=== PATIENT | male | born 1970 | race Caucasian/White ===

== ENCOUNTER 2016-10-23 01:06 | Observation (INO) | payer MEDICARE, MEDICAID ==
[2016-10-23] VITALS (14 sets, daily range): BP systolic 134–177; BP diastolic 61–106; PULSE 58–87; RESP 18–22; TEMP 96.1–98.8; O2SAT 92–97
[~2016-10-23] VITALS: Ht 182.9 cm; Wt 150.0 kg
[~2016-10-23 01:06] MED LIST: BACL10TA PO; CEPH-460 PO; FURO20TA PO; HYDR-3366 PO; IPRA17I INH; OXYGENTANK NAS.CANULA; ROLLER WALKER1 MI1; [UNRECOGNIZED DRUG - OTHER]
[2016-10-23] MEDS ORDERED: NITROGLYCERIN 0.4 MG SL 25 TABS/BTL SL ONE ×2 (01:30→08:45)
[2016-10-23] MEDS ORDERED: RESP: ALBUTEROL 2.5 MG/IPRATROPIUM 0.5 MG NEB (SCH) NEB ONE (01:30)
[2016-10-23] MEDS ORDERED: ASPIRIN 325 MG TAB PO ONE (01:30)
[2016-10-23] MEDS ORDERED: SODIUM CHLORIDE 0.9% FLUSH 5 ML FLUSH IVF PRN ×2 (01:30→03:30)
--- NOTE | 2016-10-23 01:40 | RADRPT ---
EXAM DATE/TIME: 10/23/2016 01:33 [facility] COMPARISON: CHEST SINGLE AP, August 08, 2016, 9:18. INDICATIONS : Chest pains with shortness of breath and right upper chest pains. Congestion MEDICAL HISTORY : Myocardial infarction. SURGICAL HISTORY : Pacemaker. ENCOUNTER: Initial ACUITY: 2 days PAIN SCORE: 7/10 LOCATION: Right chest FINDINGS: Portable AP view of the chest demonstrates a normal-sized cardiac silhouette. No effusion, consolidat ion, or pneumothorax is visualized. The bones and soft tissues demonstrate no acute abnormality. Lung s are underinflated. Left chest wall cardiac pacing device remains present. CONCLUSION: Underinflated examination without an acute finding identified. Alan Shaver MD on October 23, 2016 at 1:38 Board Certified Radiologist. This report was verified electronically.
[2016-10-23 01:53] LABS: AUTOMATED NEUTROPHIL # 5.4 TH/MM3 (1.8-7.7); BASOPHIL % 0.5 % (0.0-2.0); EOSINOPHIL # 0.2 TH/MM3 (0-0.4); HEMATOCRIT 46.6 % (39.0-51.0); HEMO FLAGS DIFF FINAL; LYMPH % 35.1 % (9.0-44.0); LYMPHOCYTE # 3.5 TH/MM3 (1.0-4.8); MEAN CELL VOLUME 87.8 FL (80.0-100.0); MEAN CORPUSCULAR HEMOGLOBIN 29.7 PG (27.0-34.0); MEAN CORPUSCULAR HGB CONC 33.8 % (32.0-36.0); MONO % 9.4 % (0.0-8.0); PLATELET COUNT 172 TH/MM3 (150-450); RED BLOOD COUNT 5.31 MIL/MM3 (4.50-5.90); RED CELL DISTRIBUTION WIDTH 13.6 % (11.6-17.2); WHITE BLOOD COUNT 10.1 TH/MM3 (4.0-11.0)
[2016-10-23 02:09] LABS: ALT (GPT) 24 U/L (12-78); ANION GAP 8 MEQ/L (5-15); AST (GOT) 30 U/L (15-37); BICARBONATE 27.9 MEQ/L (21.0-32.0); BLOOD UREA NITROGEN 16 MG/DL (7-18); CHLORIDE 103 MEQ/L (98-107); GLOMERULAR FILTRATION RATE 51 ML/MIN (>89); POTASSIUM 3.1 MEQ/L (3.5-5.1); SODIUM (NA) 139 MEQ/L (136-145)
[2016-10-23 02:12] LABS: ALKALINE PHOSPHATASE 74 U/L (45-117); CREATINE KINASE 515 U/L (39-308); TOTAL BILIRUBIN ADULT 0.9 MG/DL (0.2-1.0)
--- NOTE | 2016-10-23 02:12 | PD ---
HPI Chief Complaint: Chest Pain Time Seen by Provider: 01:10 Travel History International Travel<30 days: No Contact w/Intl Traveler<30days: No Traveled to known affect area: No History of Present Illness HPI 46-year-old male presents with central chest pain and difficulty breathing. He states that he went to [facility] earlier today and they didn't do anything. He states he is usually on oxygen supposed to be on it for his COPD and lungs. He states he hasn't had an aspirin yet today and has no home medications to use currently. He states it was a year or 2 since he had a heart workup that he can recall. He denies other concurrent complaints. Quality is pressure. Severity is moderate. PFSH Past Medical History Anxiety: Yes Heart Rhythm Problems: Yes (pacer) Cardiac Catheterization: No Cardiovascular Problems: Yes (CHF) High Cholesterol: Yes Congestive Heart Failure: Yes COPD: Yes Diabetes: Yes Patient Takes Glucophage: No Diminished Hearing: No Respiratory: Yes (COPD) Immunizations Current: No Myocardial Infarction: Yes Sleep Apnea: Yes (BIPAP) Tetanus Vaccination: < 5 Years Past Surgical History Cardiac Surgery: Yes (ON DEMAND PACEMAKER) Coronary Artery Bypass Graft: No Pacemaker: Yes (ON DEMAND) Other Surgery: Yes (TRACH) Social History Alcohol Use: No (socially) Tobacco Use: No Substance Use: No Allergies-Medications (Allergen,Severity, Reaction): Coded Allergies: Wellbutrin (Verified Adverse Reaction, Intermediate, HOT/COLD SWEATS, NUMBNESS/TINGLING ARMS AND LEGS, 08/08/16) *MDRO Multi-Drug Resistant Organism (Unverified Adverse Reaction, Unknown , 08/08/16) MRSA (back wound) - 11/2014 Uncoded Allergies: MRI PRECAUTION PACEMAKER (Adverse Reaction, Severe, NON COMPATIBLE PACEMAKER, 08/08/16) 08/08/16 VSV Reported Meds & Prescriptions Reported Meds & Active Scripts Active Roller Walker (Misc. Devices) 1 Mis Mis 1 Ea .ROUTE NOW Oxygen tank (Oxygen) 1 Ea Tank 2 Liter JIGAR.CANULA CONTINUOUS Oxygen Concentrator Portable Gaseous 2 L/min via Nasal Cannula Continuous For 99 months Baclofen 10 Mg Tab 10 Mg PO TID [place] (Hydrocodone-Acetaminophen) 10-325 Mg Tab 1 Tab PO Q8HR PRN Keflex (Cephalexin) 500 Mg Cap 500 Mg PO Q12H Furosemide 20 Mg Tab 20 Mg PO DAILY Atrovent HFA 12.9 GM Inh (Ipratropium [place]) 17 Mcg/Act Aer 2 Puff INH TID [Bipap] Kit .XX DAILY Review of Systems Except as stated in HPI: all other systems reviewed are Neg Physical Exam Narrative GENERAL: Well-nourished, well-developed patient. SKIN: Warm and dry. HEAD: Normocephalic and atraumatic. EYES: No injection or drainage. ENT: No nasal drainage noted. NECK: Supple, trachea midline. CARDIOVASCULAR: Regular rate and rhythm RESPIRATORY: Breath sounds equal bilaterally. No accessory muscle use. GASTROINTESTINAL: Abdomen soft, non-tender, nondistended. EXTREMITIES: Mild edema to mid tibia bilaterally, neurovascularly intact NEUROLOGICAL: Awake and alert. Motor and sensory grossly within normal limits. Normal speech. Data Data Last Documented VS Vital Signs Date Time Temp Pulse Resp B/P Pulse Ox O2 Delivery O2 Flow Rate FiO2 10/23/16 01:27 64 20 136/63 94 Room Air 10/23/16 01:11 98.1 Orders Electrocardiogram (10/23/16 01:17) B-Type Natriuretic Peptide (10/23/16 01:17) Ckmb (Isoenzyme) Profile (10/23/16 01:17) Complete Blood Count With Diff (10/23/16 01:17) Comprehensive Metabolic Panel (10/23/16 01:17) Magnesium (Mg) (10/23/16 01:17) Prothrombin Time / Inr (Pt) (10/23/16 01:17) Act Partial Throm Time (Ptt) (10/23/16 01:17) Troponin I (10/23/16 01:17) Chest, Single Ap (10/23/16 01:17) Ecg Monitoring (10/23/16 01:17) Bilateral Bp Monitoring (10/23/16 01:17) Iv Access Insert/Monitor (10/23/16 01:17) Oximetry (10/23/16 01:17) Aspirin (Aspirin) (10/23/16 01:30) Sodium Chloride 0.9% Flush (Ns Flush) (10/23/16 01:30) Nitroglycerin Sl (Nitrostat Sl) (10/23/16 01:30) Albuterol-Ipratropium Neb (Duoneb Neb) (10/23/16 01:30) CKMB (10/23/16 01:30) CKMB% (10/23/16 01:30) Admit Order (Ed Use Only) (10/23/16 03:22) Activity Bed Rest With Brp (10/23/16 03:24) Vital Signs (Adult) Q4H (10/23/16 03:24) Cardiac Rhythm .As Directed (10/23/16 03:24) ^ Notify Dr: Other .PRN (10/23/16 03:24) ^ Notify Dr. Parameters (10/23/16 03:24) Ckmb (Isoenzyme) Profile (10/23/16 03:24) Ckmb (Isoenzyme) Profile (10/23/16 06:24) Troponin I (10/23/16 03:24) Troponin I (10/23/16 06:24) Electrocardiogram (10/23/16 03:24) Electrocardiogram (10/23/16 06:24) ^ Obtain (10/23/16 03:24) Sodium Chloride 0.9% Flush (Ns Flush) (10/23/16 03:30) Sodium Chloride 0.9% Flush (Ns Flush) (10/23/16 09:00) Solidworks Mechanical Designer / Telemetry JAXSON.Q8H (10/23/16 03:24) Labs Laboratory Tests Test 10/23/16 01:30 White Blood Count 10.1 TH/MM3 Red Blood Count 5.31 MIL/MM3 Hemoglobin 15.8 GM/DL Hematocrit 46.6 % Mean Corpuscular Volume 87.8 FL Mean Corpuscular Hemoglobin 29.7 PG Mean Corpuscular Hemoglobin 33.8 % Concent Red Cell Distribution Width 13.6 % Platelet Count 172 TH/MM3 Mean Platelet Volume 8.4 FL Neutrophils (%) (Auto) 53.0 % Lymphocytes (%) (Auto) 35.1 % Monocytes (%) (Auto) 9.4 % Eosinophils (%) (Auto) 2.0 % Basophils (%) (Auto) 0.5 % Neutrophils # (Auto) 5.4 TH/MM3 Lymphocytes # (Auto) 3.5 TH/MM3 Monocytes # (Auto) 0.9 TH/MM3 Eosinophils # (Auto) 0.2 TH/MM3 Basophils # (Auto) 0.0 TH/MM3 CBC Comment DIFF FINAL Differential Comment Prothrombin Time 10.8 SEC Prothromb Time International 1.0 RATIO Ratio Activated Partial 28.4 SEC Thromboplast Time Sodium Level 139 MEQ/L Potassium Level 3.1 MEQ/L Chloride Level 103 MEQ/L Carbon Dioxide Level 27.9 MEQ/L Anion Gap 8 MEQ/L Blood Urea Nitrogen 16 MG/DL Creatinine 1.48 MG/DL Estimat Glomerular Filtration 51 ML/MIN Rate Random Glucose 93 MG/DL Calcium Level 8.2 MG/DL Magnesium Level 2.0 MG/DL Total Bilirubin 0.9 MG/DL Aspartate Amino Transf 30 U/L (AST/SGOT) Alanine Aminotransferase 24 U/L (ALT/SGPT) Alkaline Phosphatase 74 U/L Total Creatine Kinase 515 U/L Creatine Kinase MB 6.1 NG/ML Creatine Kinase MB % 1.2 % Troponin I 0.02 NG/ML B-Type Natriuretic Peptide 11 PG/ML Total Protein 7.4 GM/DL Albumin 3.7 GM/DL MDM Medical Decision Making Medical Screen Exam Complete: Yes Emergency Medical Condition: Yes Medical Record Reviewed: Yes (past history confirm) Interpretation(s) EKG is atrial paced at 60 without STEMI criteria CBC & BMP Diagram 10/23/16 01:30 cxr no acute Differential Diagnosis Musculoskeletal, cardiac, COPD, anemia, pneumothorax Narrative Course Will check blood work, chest x-ray, EKG and dose with aspirin and nitroglycerin and reevaluate, will also try duoneb ed workup no acute, agrees to [facility] observation Diagnosis Primary Impression: Chest pain Qualified Code: R07.9 - Chest pain, unspecified type Admitting Information Admitting Physician Requests: Observation Chanel Cope MD Oct 23, 2016 02:12
[2016-10-23 02:27] LABS: CKMB 6.1 NG/ML (0.5-3.6)
[2016-10-23 02:57] LABS: APTT (PATIENT) 28.4 SEC (24.3-30.1); PROTHROMBIN TIME - PATIENT 10.8 SEC (9.8-11.6)
[2016-10-23 05:34] LABS: CKMB 6.4 NG/ML (0.5-3.6)
[2016-10-23 07:57] LABS: CKMB 5.5 NG/ML (0.5-3.6)
[2016-10-23] MEDS ORDERED: POTASSIUM CHLORIDE 25 MEQ EFFERVESCENT TAB PO ONE (08:45)
[2016-10-23] MEDS ORDERED: RESP: ALBUTEROL 2.5 MG/IPRATROPIUM 0.5 MG NEB (SCH) INH ONE (08:45)
[2016-10-23] MEDS ORDERED: methylPREDNISolone SOD SUCC 125 MG/2 ML VIAL IV PUSH SCH (08:45)
[2016-10-23] MEDS: SODIUM CHLORIDE 0.9% FLUSH 5 ML FLUSH IVF SCH ×2 (08:54→09:12)
[2016-10-23] MEDS ORDERED: SODIUM CHLORID 0.9% 500 ML INJ 500 ML IV SCH (09:00)
[2016-10-23] MEDS: ACETAMINOPHEN/HYDROcodone 325 MG/7.5 MG TAB PO PRN ×2 (09:13→16:05)
[2016-10-23] MEDS ORDERED: SODIUM CHLORID 0.9% 500 ML INJ 500 ML IV ONE (09:59)
[2016-10-23] MEDS ORDERED: amLODIPine BESYLATE 5 MG TAB PO ONE (11:15)
[2016-10-23] MEDS ORDERED: RESP: ALBUTEROL 2.5 MG/IPRATROPIUM 0.5 MG NEB (PRN) INH (12:00)
--- NOTE | 2016-10-23 12:42 | EKG ---
Date Performed: 10/23/2016 Time Performed: 01:24:32 PTAGE: 46 years EKG: ELECTRONIC ATRIAL PACEMAKER LEFT AXIS DEVIATION POOR PRECORDIAL R-WAVE PROGRESSION ABNORMAL RHYTHM ECG PREVIOUS TRACING : 08/08/2016 22.00 DOCTOR: Matthew Valdez Interpretating Date/Time 10/23/2016 12:40:38
--- NOTE | 2016-10-23 12:48 | EKG ---
Date Performed: 10/23/2016 Time Performed: 04:46:11 PTAGE: 46 years EKG: ELECTRONIC ATRIAL PACEMAKER POOR PRECORDIAL R-WAVE PROGRESSION ABNORMAL RHYTHM ECG PREVIOUS TRACING : 10/23/2016 01.24 DOCTOR: Matthew Valdez Interpretating Date/Time 10/23/2016 12:48:30
[2016-10-23] MEDS: RESP: ALBUTEROL 2.5 MG/IPRATROPIUM 0.5 MG NEB (SCH) NEB ×2 (16:12→22:00)
--- NOTE | 2016-10-23 16:30 | EKG ---
Date Performed: 10/23/2016 Time Performed: 07:25:43 PTAGE: 46 years EKG: ELECTRONIC ATRIAL PACEMAKER NONSPECIFIC ST ELEVATION POOR PRECORDIAL R-WAVE PROGRESSION ABN ORMAL RHYTHM ECG PREVIOUS TRACING : 10/23/2016 04.46 DOCTOR: Matthew Valdez Interpretating Date/Time 10/23/2016 16:28:44
--- NOTE | 2016-10-23 18:10 | MB ---
cc: MOO JUAREZ MD DATE OF CONSULTATION 10/23/2016 REQUESTING PHYSICIAN Requested by Dr. Kunz. REASON FOR CONSULTATION Shortness of breath. HISTORY OF PRESENT ILLNESS Mr. Wells is 46-year-old male who is homeless. He has a history of stiff lung, pulmonary fibrosis, obstructive sleep apnea and permanent pacemaker. He uses oxygen off and on whenever he can and uses C-PAP machine. He came to the hospital because of worsening shortness of breath and chest discomfort. He was seen in the chest pain center and DC was ruled out. He has no cough or sputum production. No fever or chills. No night sweats. No nausea or vomiting. He has chronic pain. PAST MEDICAL HISTORY 1. History of questionable pulmonary fibrosis. 2. Obstructive sleep apnea. 3. Hypertension. 4. Permanent pacemaker placement. MEDICATIONS He is currently takin. Aspirin 325 mg a day. 2. Nebulizer treatment with DuoNeb. 3. Catapres 0.5 mg p.r.n. 4. oxygen 2 liters nasal cannula. ALLERGIES HE IS ALLERGIC TO WELBUTRIN. SOCIAL HISTORY He is . Used to work as a retail stock clerk. He is disabled. Has no history of smoking, alcohol abuse. FAMILY HISTORY He lives on and off on the streets. He has no children. REVIEW OF SYSTEMS Denies any weight loss. No seizure, stroke or epilepsy. No DVT or pulmonary embolism. PHYSICAL EXAMINATION GENERAL: Well-built, well-nourished male, mild short of breath. VITAL SIGNS: Blood pressure 177/82, heart rate 67, respirations 20, temperature 96.1, saturation 94% on 3 liters nasal cannula. HEENT: Examination unremarkable. NECK: Supple. JVP not raised. CHEST: Air equal bilaterally. No rhonchi. CARDIOVASCULAR: S1-S2 normal. ABDOMEN: Benign. EXTREMITIES: No edema. CENTRAL NERVOUS SYSTEM: Alert and oriented times three. No focal deficit. LABORATORY FINDINGS WBC count is 10.1, hemoglobin 15.8, hematocrit 46.6, MCV 87, platelet count 172. Sodium 139, potassium 3.1, chloride 103, CO2 28, BUN 16, creatinine 1.48. Troponin less than 0.02. IMPRESSION 1. Shortness of breath due to pulmonary fibrosis. He was told he will need lung transplant. 2. Obstructive sleep apnea. 3. Obesity. 4. Chronic back pain. 5. Pacemaker placement. PLAN He will use oxygen 2 liters nasal cannula. Aerosol treatment with albuterol and Atrovent. Continue aspirin. Monitor blood pressure. Use C-PAP 06/22 at night time. Further treatment will depend on the course in the hospital. Thank you Dr. Kunz for this consultation. MD AGUEDA Bonilla/NICOLLE /3:52 PM /5:53 PM
[2016-10-23] MEDS: cloNIDine HCL 0.1 MG TAB PO PRN (19:26)
[2016-10-24] VITALS (12 sets, daily range): BP systolic 126–178; BP diastolic 69–104; PULSE 60–72; RESP 18–21; TEMP 97.8–98; O2SAT 94–99
--- NOTE | 2016-10-24 00:45 | RADRPT ---
EXAM DATE/TIME: 10/24/2016 00:33 [facility] COMPARISON: No previous studies available for comparison. INDICATIONS : Left leg pain after falling today. MEDICAL HISTORY : Congestive heart failure. Cardiovascular disease Chronic obstructive pulmonary disease. SURGICAL HISTORY : None. ENCOUNTER: Subsequent ACUITY: 1 day PAIN SCORE: 8/10 LOCATION: Left femur. FINDINGS: Two view examination of the left femur demonstrates no evidence of fracture or dislocation. Bony min eralization is normal. The soft tissue structures are intact. CONCLUSION: No acute disease. Tanner Sanders MD on October 24, 2016 at 0:43 Board Certified Radiologist. This report was verified electronically.
[2016-10-24] MEDS: ACETAMINOPHEN/HYDROcodone 325 MG/7.5 MG TAB PO PRN ×4 (00:59→21:36)
[2016-10-24] MEDS: RESP: ALBUTEROL 2.5 MG/IPRATROPIUM 0.5 MG NEB (SCH) NEB ×3 (03:47→17:02)
--- NOTE | 2016-10-24 07:43 | HHI.HP ---
History of Present Illness Service Family practice Primary Care Physician Dr. Kunz Admission Diagnosis chest pain Diagnoses: History of Present Illness Patient is a 46 year old man brought to hospital via evac for chest pain and SOB. He reports that he has had repeated falls over the last couple of days. He is also homeless and needs CPAP nightly which he has not been able to use. He has past medical history of anxiety, chronic pain, HTN, GERD, and pacemaker. He reports that he is disabled secondary to a lung disease and that he needs a lung transplant. Review of Systems Constitutional: COMPLAINS OF: Fatigue, Dizziness Respiratory: COMPLAINS OF: Cough, Snoring, Shortness of breath, DENIES: Sputum production Cardiovascular: COMPLAINS OF: Chest pain, Palpitations Gastrointestinal: DENIES: Abdominal pain Musculoskeletal: COMPLAINS OF: Joint pain, Muscle aches, Stiffness Neurologic: COMPLAINS OF: Headache Psychiatric: COMPLAINS OF: Anxiety, Depression Past Family Social History Allergies: Coded Allergies: Wellbutrin (Verified Adverse Reaction, Intermediate, HOT/COLD SWEATS, NUMBNESS/TINGLING ARMS AND LEGS, 08/08/16) *MDRO Multi-Drug Resistant Organism (Unverified Adverse Reaction, Unknown , 08/08/16) MRSA (back wound) - 11/2014 Uncoded Allergies: MRI PRECAUTION PACEMAKER (Adverse Reaction, Severe, NON COMPATIBLE PACEMAKER, 08/08/16) 08/08/16 VSV Past Medical History Past medical history of HTN, GERD, chronic pain, anxiety, CHF, COPD, and pacemaker. Past Surgical History Tracheostomy Reported Medications Reported Meds & Active Scripts Active Roller Walker (Misc. Devices) 1 Mis Mis 1 Ea .ROUTE NOW Oxygen tank (Oxygen) 1 Ea Tank 2 Liter JIGAR.CANULA CONTINUOUS Oxygen Concentrator Portable Gaseous 2 L/min via Nasal Cannula Continuous For 99 months [Bipap] Kit .XX DAILY Active Ordered Medications Current Medications Medications (Trade) Dose Ordered Sig/Saul Route Start Time Stop Time Status Last Admin (NS Flush) 2 ml UNSCH PRN IVF 10/23/16 01:30 (NS Flush) 2 ml UNSCH PRN IVF 10/23/16 03:30 (NS Flush) 2 ml BID IVF 10/23/16 09:00 10/24/16 08:49 (Catapres) 0.1 mg Q4H PRN PO 10/23/16 08:45 10/23/16 19:26 ([place] 7.5-325 Mg) 1 tab Q4H PRN PO 10/23/16 08:45 10/24/16 10:28 (Aspirin) 325 mg DAILY PO 10/24/16 09:00 10/24/16 08:49 Social History Patient denies smoking Occasional ETOH use Homeless Disabled Physical Exam Vital Signs Vital Signs Date Time Temp Pulse Resp B/P Pulse Ox O2 Delivery O2 Flow Rate FiO2 10/24/16 03:52 96 10/24/16 01:00 95 10/23/16 21:40 96 Nasal Cannula 2.00 10/23/16 21:40 95 10/23/16 20:00 87 10/23/16 19:52 98.8 68 18 177/87 97 10/23/16 16:39 96.2 76 20 177/84 93 10/23/16 10:27 3.00 10/23/16 10:13 14 10/23/16 08:50 18 10/23/16 08:00 59 Physical Exam GENERAL: This a morbidity obese in no apparent distress. SKIN: Cool and dry. HEAD: Normocephalic. No temporal or scalp tenderness. ENT: Nose without bleeding, purulent drainage or septal hematoma. Throat without erythema, tonsillar hypertrophy or exudate. Uvula midline. Airway patent. NECK: Trachea midline. No JVD or lymphadenopathy. Supple, nontender, no meningeal signs. CARDIOVASCULAR: Regular rate and rhythm without murmurs, gallops, or rubs. RESPIRATORY: Breath sounds diminished.. No wheezes, rales, or rhonchi. GASTROINTESTINAL: Abdomen soft, non-tender, nondistended. MUSCULOSKELETAL: Tenderness noted in lower extremity. Negative Homans sign bilaterally. NEUROLOGICAL: Awake and alert. Normal speech. Laboratory Laboratory Tests Test 10/23/16 10/23/16 10/23/16 01:30 04:35 06:53 Monocytes (%) (Auto) 9.4 % (0.0-8.0) Potassium Level 3.1 MEQ/L (3.5-5.1) Creatinine 1.48 MG/DL (0.60-1.30) Estimat Glomerular Filtration 51 ML/MIN (>89) Rate Calcium Level 8.2 MG/DL (8.5-10.1) Total Creatine Kinase 515 U/L 450 U/L 396 U/L (39-308) (39-308) (39-308) Creatine Kinase MB 6.1 NG/ML 6.4 NG/ML 5.5 NG/ML (0.5-3.6) (0.5-3.6) (0.5-3.6) Result Diagram: 10/23/16 0130 10/23/16 0130 Imaging Last 48 hours Impressions Chest X-Ray 10/23/16 0117 Signed Impressions: Service Date/Time: Sunday, October 23, 2016 01:33 - CONCLUSION: Underinflated examination without an acute finding identified. Alan Shaver MD Femur X-Ray 10/23/16 0000 Signed Impressions: Service Date/Time: Monday, October 24, 2016 00:33 - CONCLUSION: No acute disease. Tanner Sanders MD Assessment and Plan Problem List: (1) COPD (chronic obstructive pulmonary disease) Status: Acute Plan: Being followed by pulmonary. [facility]. (2) NORBERTO (obstructive sleep apnea) Status: Acute Plan: Using CPAP nightly (3) Chest pain Status: Acute Plan: Complaining of CP. Serial tropins negative. Assessment and Plan Assessment and plan discussed with Dr. Kunz Discharge Planning Will consult case management for post hospital placement. Problem Qualifiers (1) Chest pain: Qualified Code: R07.9 - Chest pain, unspecified type Vannesa Lerma Oct 24, 2016 07:43
[2016-10-24] MEDS: SODIUM CHLORIDE 0.9% FLUSH 5 ML FLUSH IVF SCH ×2 (08:49→21:14)
[2016-10-24] MEDS: ASPIRIN 325 MG TAB PO SCH (08:49)
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
[2016-10-24 16:43] LABS: AMPHETAMINE, URINE NEG (NEG); BARBITURATES, URINE NEG (NEG); COCAINE, URINE POS (NEG)
[2016-10-24 16:44] LABS: BACTERIA, URINE OCC /hpf; BLOOD, URINE TRACE (NEG); COMMENT (UR) CULTURE INDICATED; CULTURE IF INDICATED CULTURE INDICATED; GLUCOSE,URINE NEG (NEG); KETONE, URINE NEG (NEG); MUCUS URINE FEW /lpf (OCC); NITRITE,URINE NEG (NEG); PH, URINE 5.5 (5.0-8.5); SQUAMOUS EPITHELIAL CELL URINE <1 /hpf (0-5); URINE COLOR YELLOW (YELLW/STRAW)
[2016-10-24] MEDS: cloNIDine HCL 0.1 MG TAB PO PRN (17:17)
[2016-10-24 17:40] LABS: AUTOMATED NEUTROPHIL # 6.4 TH/MM3 (1.8-7.7); BASOPHIL # 0.1 TH/MM3 (0-0.2); BASOPHIL % 0.7 % (0.0-2.0); EOSINOPHIL # 0.2 TH/MM3 (0-0.4); EOSINOPHIL % 1.5 % (0.0-4.0); HEMATOCRIT 46.5 % (39.0-51.0); HEMO FLAGS DIFF FINAL; LYMPH % 29.6 % (9.0-44.0); LYMPHOCYTE # 3.1 TH/MM3 (1.0-4.8); MEAN CELL VOLUME 88.1 FL (80.0-100.0); MONO % 8.3 % (0.0-8.0); NEUT % 59.9 % (16.0-70.0); PLATELET COUNT 169 TH/MM3 (150-450); RED BLOOD COUNT 5.28 MIL/MM3 (4.50-5.90); RED CELL DISTRIBUTION WIDTH 13.9 % (11.6-17.2); WHITE BLOOD COUNT 10.6 TH/MM3 (4.0-11.0)
[2016-10-24 17:59] LABS: ALKALINE PHOSPHATASE 71 U/L (45-117); ALT (GPT) 27 U/L (12-78); ANION GAP 6 MEQ/L (5-15); AST (GOT) 21 U/L (15-37); BICARBONATE 31.8 MEQ/L (21.0-32.0); BLOOD UREA NITROGEN 20 MG/DL (7-18); CHLORIDE 106 MEQ/L (98-107); GLOMERULAR FILTRATION RATE 69 ML/MIN (>89); POTASSIUM 4.1 MEQ/L (3.5-5.1); SODIUM (NA) 144 MEQ/L (136-145); TOTAL BILIRUBIN ADULT 0.3 MG/DL (0.2-1.0)
--- NOTE | 2016-10-24 18:55 | HHI.PR ---
Subjective Remarks 46YOWM with COPD,PF,NORBERTO, homeless Has ch pain, numbness Mild sob No fever or chills Objective Vital Signs Vital Signs Date Time Temp Pulse Resp B/P Pulse Ox O2 Delivery O2 Flow Rate FiO2 10/24/16 17:00 168/99 10/24/16 16:17 70 18 174/94 96 10/24/16 12:16 60 20 144/75 95 10/24/16 09:22 97.8 72 18 178/104 95 10/24/16 07:21 60 10/24/16 07:21 60 10/24/16 04:00 98.0 68 21 168/88 99 10/24/16 03:52 96 10/24/16 01:00 95 10/23/16 21:40 96 Nasal Cannula 2.00 10/23/16 21:40 95 10/23/16 20:00 87 10/23/16 19:52 98.8 68 18 177/87 97 Result Diagram: 10/24/16 1715 10/24/16 1715 Objective Remarks GENERAL: WBWN WM, mild sob SKIN: Warm and dry. HEAD: Normocephalic. EYES: No scleral icterus. No injection or drainage. NECK: Supple, trachea midline. No JVD or lymphadenopathy. CARDIOVASCULAR: Regular rate and rhythm without murmurs, gallops, or rubs. RESPIRATORY: Breath sounds equal bilaterally. No accessory muscle use. GASTROINTESTINAL: Abdomen soft, non-tender, nondistended. MUSCULOSKELETAL: No cyanosis, or edema. BACK: Nontender without obvious deformity. No CVA tenderness. A/P Assessment and Plan COPD NORBERTO Pulm Fibrosis Back pain Pt is homeless PLAN: CPAP at night, does;t want to use Supplement 02 2 LNC Aerosol Orestes Jackson MD Oct 24, 2016 18:55
--- NOTE | 2016-10-24 21:26 | MB ---
cc: EDILBERTO RIVERA M.D. DATE OF CONSULTATION 10/24/2016 REASON FOR CONSULTATION Evaluation for congestive heart failure. HISTORY OF PRESENT ILLNESS This is a 46-year-old man, apparently has severe heart disease, who I was asked to evaluate for CHF. The patient has been evaluated apparently for severe lung problems and was told he would likely need a lung transplant but has not been actually followed closely at all. He actually has become homeless. He is extremely short of breath with any activity. He has chest discomfort. His chest wall is exquisitely tender both on the right posterior aspect and on the front of his chest. It hurts when he twists his chest, hurts when you press on his chest. He does not have any typical anginal symptoms that I can elicit. He does have the shortness of breath but not having that much peripheral edema and his BMP level is only 11. Apparently the diagnosis is of COPD, pulmonary fibrosis and sleep apnea but he is not currently following with any lung specialist. PAST MEDICAL HISTORY 1. [employer] pacemaker placed 5-6 years ago in [facility]. I am going to try to arrange to have the device interrogated. 2. He has hypertension. 3. Morbid obesity. 4. Cerebral hemorrhage 6 years ago. 5. Pulmonary fibrosis. 6. History of MRSA. 7. Chronic back pain. 8. COPD. SOCIAL HISTORY He is a nonsmoker, is currently homeless. FAMILY HISTORY Positive for coronary artery disease and the father. PAST SURGICAL HISTORY 1. Tracheostomy twice in the past. 2. Pacemaker. ALLERGIES WELLBUTRIN. PHYSICAL EXAMINATION GENERAL: Physical exam reveals a morbidly obese white male. Right now he his feet soaking into tubs. He does not appear to be in acute distress. VITAL SIGNS: Charted. HEENT: Exam is unremarkable. NECK: Does not show JVD. CHEST: Diminished breath sounds with scattered wheezes. CARDIAC EXAM: Shows S1-S2, regular rate and rhythm. No murmurs or gallops. CHEST: He has exquisite chest wall tenderness both on the right posterior aspect and on the left side of his chest. ABDOMEN: Obese, soft, nontender. EXTREMITIES: Trace to 1+ edema. He has intact pulses. EKG Demonstrates atrially paced rhythm with no acute ST-T wave changes. CHEST X-RAY Did not show any acute findings. LABORATORY WORK His hematocrit is 46.5. His creatinine is 1.15. His troponin levels are normal. His B-natriuretic peptide is 11. His tox screen is positive for urine opiates and urine cocaine. IMPRESSION AND RECOMMENDATIONS I was consulted for CHF based on the chest x-ray findings and the B-natriuretic peptide finding of 11. This excludes CHF as being an important diagnosis in him at this time. The chest pain he has is I believe musculoskeletal. He is certainly at risk of having atherosclerotic disease and certainly with cocaine he could be at risk of other toxic myopathies but I do not see any sign of ACS or sign of CHF at this point. I will be available as needed to follow him p.r.n. Please call if there are any questions. Edilberto Rivera MD VEW/SSB /6:03 PM /9:15 PM
[2016-10-25] VITALS (8 sets, daily range): BP systolic 134–163; BP diastolic 72–95; PULSE 60–85; RESP 18–21; TEMP 97.5–98.3; O2SAT 96–97
[2016-10-25] MEDS: ACETAMINOPHEN/HYDROcodone 325 MG/7.5 MG TAB PO PRN ×3 (02:09→16:40)
[2016-10-25] MEDS: RESP: ALBUTEROL 2.5 MG/IPRATROPIUM 0.5 MG NEB (SCH) NEB ×5 (04:00→22:14)
--- NOTE | 2016-10-25 07:05 | HHI.PR ---
Subjective Remarks Patient requesting to be tested for trichomoniasis. Reported that one of his girlfriends has recently tested positive and he would like to be tested. Objective Vital Signs Date Time Temp Pulse Resp B/P Pulse Ox O2 Delivery O2 Flow Rate FiO2 10/25/16 06:03 97.5 82 18 141/72 96 10/25/16 01:25 97 6.00 10/25/16 00:33 98.3 85 18 134/85 97 10/24/16 23:26 65 10/24/16 22:49 96 6.00 10/24/16 22:30 96 Nasal Cannula 3.00 10/24/16 19:19 97.9 71 18 126/69 94 10/24/16 17:00 168/99 10/24/16 16:17 70 18 174/94 96 10/24/16 12:16 60 20 144/75 95 10/24/16 09:22 97.8 72 18 178/104 95 10/24/16 07:21 60 10/24/16 07:21 60 Result Diagram: 10/24/16171410/24/161714 Objective Remarks GENERAL: Alert and oriented. Obese SKIN: Warm and dry. HEAD: Normocephalic. EYES: No scleral icterus. No injection or drainage. NECK: Supple, trachea midline. No JVD or lymphadenopathy. CARDIOVASCULAR: Regular rate and rhythm without murmurs, gallops, or rubs. RESPIRATORY: Breath sounds equal bilaterally. No accessory muscle use. GASTROINTESTINAL: Abdomen soft, non-tender, nondistended. MUSCULOSKELETAL: No cyanosis. 1 + edema BACK: Nontender without obvious deformity. No CVA tenderness. Medications and IVs Current Medications Medications (Trade) Dose Ordered Sig/Saul Route Start Time Stop Time Status Last Admin (NS Flush) 2 ml UNSCH PRN IVF 10/23/16 01:30 (NS Flush) 2 ml UNSCH PRN IVF 10/23/16 03:30 (NS Flush) 2 ml BID IVF 10/23/16 09:00 10/25/16 10:12 (Catapres) 0.1 mg Q4H PRN PO 10/23/16 08:45 10/24/16 17:17 ([place] 7.5-325 Mg) 1 tab Q4H PRN PO 10/23/16 08:45 10/25/16 10:10 (Aspirin) 325 mg DAILY PO 10/24/16 09:00 10/25/16 10:10 Assessment and Plan Problem List: (1) COPD (chronic obstructive pulmonary disease) Status: Acute Plan: Being followed by pulmonary. On dounebs. Occasional cough reported (2) NORBERTO (obstructive sleep apnea) Status: Acute Plan: Using CPAP nightly. Patient is homeless and has not been able to use his CPAP (3) Chest pain Status: Acute Plan: Complaining of CP. Serial tropins negative. Cardiology following will have pacemaker interrogated (4) Cocaine abuse Status: Acute Plan: Patients UDS positive for cocaine (5) Venereal disease Status: Acute Plan: Gonorrhea and chlamydia PCR ordered. (6) Weakness generalized Status: Acute Plan: PT and OT ordered. Assessment and Plan Assessment and plan discussed with Dr. Kunz Discharge Planning Plan to discharge to SNF Problem Qualifiers (1) Chest pain: Qualified Code: R07.9 - Chest pain, unspecified type Vannesa Lerma Oct 25, 2016 07:05
[2016-10-25 09:02] LABS: AUTOMATED NEUTROPHIL # 4.1 TH/MM3 (1.8-7.7); BASOPHIL % 0.5 % (0.0-2.0); EOSINOPHIL # 0.2 TH/MM3 (0-0.4); EOSINOPHIL % 2.1 % (0.0-4.0); HEMATOCRIT 45.3 % (39.0-51.0); HEMO FLAGS DIFF FINAL; LYMPH % 37.5 % (9.0-44.0); LYMPHOCYTE # 2.9 TH/MM3 (1.0-4.8); MEAN CORPUSCULAR HEMOGLOBIN 30.1 PG (27.0-34.0); MEAN CORPUSCULAR HGB CONC 33.8 % (32.0-36.0); MONO % 6.9 % (0.0-8.0); PLATELET COUNT 149 TH/MM3 (150-450); RED BLOOD COUNT 5.09 MIL/MM3 (4.50-5.90); RED CELL DISTRIBUTION WIDTH 13.5 % (11.6-17.2); WHITE BLOOD COUNT 7.8 TH/MM3 (4.0-11.0)
[2016-10-25 09:28] LABS: ALKALINE PHOSPHATASE 62 U/L (45-117); ALT (GPT) 25 U/L (12-78); ANION GAP 6 MEQ/L (5-15); AST (GOT) 19 U/L (15-37); BICARBONATE 31.3 MEQ/L (21.0-32.0); BLOOD UREA NITROGEN 21 MG/DL (7-18); CHLORIDE 105 MEQ/L (98-107); GLOMERULAR FILTRATION RATE 66 ML/MIN (>89); POTASSIUM 3.8 MEQ/L (3.5-5.1); SODIUM (NA) 142 MEQ/L (136-145); TOTAL BILIRUBIN ADULT 0.3 MG/DL (0.2-1.0)
[2016-10-25] MEDS: ASPIRIN 325 MG TAB PO SCH (10:10)
[2016-10-25] MEDS: SODIUM CHLORIDE 0.9% FLUSH 5 ML FLUSH IVF SCH ×2 (10:12→21:00)
--- NOTE | 2016-10-25 19:57 | HHI.PR ---
Subjective Remarks 46YOWM with COPD,PF,NORBERTO, homeless Has ch pain, numbness Mild sob No fever or chills Breathing better Seen by , no CHF Objective Vital Signs Vital Signs Date Time Temp Pulse Resp B/P Pulse Ox O2 Delivery O2 Flow Rate FiO2 10/25/16 17:40 20 10/25/16 11:58 60 20 163/95 96 10/25/16 08:00 60 10/25/16 08:00 60 10/25/16 06:03 97.5 82 18 141/72 96 10/25/16 01:25 97 6.00 10/25/16 00:33 98.3 85 18 134/85 97 10/24/16 23:26 65 10/24/16 22:49 96 6.00 10/24/16 22:30 96 Nasal Cannula 3.00 Result Diagram: 10/25/1683210/25/1633 Objective Remarks GENERAL: WBWN WM, mild sob SKIN: Warm and dry. HEAD: Normocephalic. EYES: No scleral icterus. No injection or drainage. NECK: Supple, trachea midline. No JVD or lymphadenopathy. CARDIOVASCULAR: Regular rate and rhythm without murmurs, gallops, or rubs. RESPIRATORY: Breath sounds equal bilaterally. No accessory muscle use. GASTROINTESTINAL: Abdomen soft, non-tender, nondistended. MUSCULOSKELETAL: No cyanosis, or edema. BACK: Nontender without obvious deformity. No CVA tenderness. A/P Assessment and Plan COPD NORBERTO Pulm Fibrosis Back pain Pt is homeless PLAN: CPAPat night, does;t want to use Supplement 02 2 LNC Aerosol nebs Stable from Pulm standpoint Orestes Acevedo MD Oct 25, 2016 19:57
[2016-10-26] VITALS (7 sets, daily range): BP systolic 150–168; BP diastolic 76–85; PULSE 60–75; RESP 19–21; TEMP 97.9–98.4; O2SAT 93–98
[2016-10-26] MEDS: ACETAMINOPHEN/HYDROcodone 325 MG/7.5 MG TAB PO PRN ×4 (00:22→21:24)
[2016-10-26] MEDS: RESP: ALBUTEROL 2.5 MG/IPRATROPIUM 0.5 MG NEB (SCH) NEB ×4 (03:49→19:17)
[2016-10-26] MEDS: ASPIRIN 325 MG TAB PO SCH (09:58)
[2016-10-26] MEDS: SODIUM CHLORIDE 0.9% FLUSH 5 ML FLUSH IVF SCH ×2 (09:58→21:23)
[2016-10-26 10:55] LABS: AUTOMATED NEUTROPHIL # 6.7 TH/MM3 (1.8-7.7); BASOPHIL % 0.5 % (0.0-2.0); EOSINOPHIL # 0.2 TH/MM3 (0-0.4); HEMATOCRIT 46.7 % (39.0-51.0); HEMO FLAGS DIFF FINAL; LYMPH % 18.8 % (9.0-44.0); LYMPHOCYTE # 1.7 TH/MM3 (1.0-4.8); MEAN CORPUSCULAR HEMOGLOBIN 29.7 PG (27.0-34.0); MEAN CORPUSCULAR HGB CONC 33.7 % (32.0-36.0); MONO % 6.6 % (0.0-8.0); NEUT % 72.1 % (16.0-70.0); PLATELET COUNT 157 TH/MM3 (150-450); RED CELL DISTRIBUTION WIDTH 13.5 % (11.6-17.2); WHITE BLOOD COUNT 9.3 TH/MM3 (4.0-11.0)
[2016-10-26 13:35] LABS: ALKALINE PHOSPHATASE 66 U/L (45-117); ALT (GPT) 23 U/L (12-78); ANION GAP 5 MEQ/L (5-15); AST (GOT) 16 U/L (15-37); BICARBONATE 32.8 MEQ/L (21.0-32.0); BLOOD UREA NITROGEN 19 MG/DL (7-18); CHLORIDE 103 MEQ/L (98-107); GLOMERULAR FILTRATION RATE 68 ML/MIN (>89); POTASSIUM 3.8 MEQ/L (3.5-5.1); SODIUM (NA) 141 MEQ/L (136-145); TOTAL BILIRUBIN ADULT 0.6 MG/DL (0.2-1.0)
--- NOTE | 2016-10-26 13:52 | HHI.PR ---
Subjective Remarks No chest pain today. Wearing CPAP. Objective Vital Signs Date Time Temp Pulse Resp B/P Pulse Ox O2 Delivery O2 Flow Rate FiO2 10/26/16 12:26 98.3 67 20 162/76 96 10/26/16 10:59 18 10/26/16 08:30 96 10/26/16 08:20 98.4 63 19 158/79 93 10/26/16 00:00 98.0 67 21 168/82 98 10/25/16 23:02 96 6.00 10/25/16 23:01 96 10/25/16 20:24 98.1 60 21 161/87 97 Result Diagram: 10/26/16 1029 10/26/16 1029 Objective Remarks GENERAL: Well-nourished, morbidly obese, well-developed patient. SKIN: Warm and dry. HEAD: Normocephalic. EYES: No scleral icterus. No injection or drainage. NECK: Supple, trachea midline. No JVD or lymphadenopathy. CARDIOVASCULAR: Regular rate and rhythm without murmurs, gallops, or rubs. RESPIRATORY: Breath sounds diminished, equal bilaterally. No accessory muscle use. GASTROINTESTINAL: Abdomen obese, soft, non-tender, nondistended. EXTREMITIES: No cyanosis, or edema. NEUROLOGICAL: Awake, alert, and oriented x 3. Non-focal. Medications and IVs Current Medications Medications (Trade) Dose Ordered Sig/Saul Route Start Time Stop Time Status Last Admin (NS Flush) 2 ml UNSCH PRN IVF 10/23/16 01:30 (NS Flush) 2 ml UNSCH PRN IVF 10/23/16 03:30 (NS Flush) 2 ml BID IVF 10/23/16 09:00 10/26/16 09:58 (Catapres) 0.1 mg Q4H PRN PO 10/23/16 08:45 10/24/16 17:17 ([place] 7.5-325 Mg) 1 tab Q4H PRN PO 10/23/16 08:45 10/26/16 09:58 (Aspirin) 325 mg DAILY PO 10/24/16 09:00 10/26/16 09:58 Assessment and Plan Problem List: (1) COPD (chronic obstructive pulmonary disease) Status: Chronic Plan: Compliant with CPAP today, no cough, fever, SOB. Cleared by pulmonology for DC. (2) Chest pain Status: Acute Plan: CP reproducible to palpation, with deep inspiration and movement. Cleared by cardiology for discharge as non-cardiac CP. (3) NORBERTO (obstructive sleep apnea) Status: Chronic Plan: He is homeless and has difficulty with CPAP due to lack of services. Will need placement in homeless half-way for DC. CM aware. (4) Cocaine abuse Status: Acute Plan: Positive UDS for cocaine and opioids. Counselled. (5) Obesity Status: Chronic Plan: Would benefit from outreach and education social worker if half-way placement can be arranged. Assessment and Plan D/W CM, as he does not meet inpatient criteria, cannot transition to SNF. Will need homeless half-way placement. D/W pt., RN, Dr. Kunz. Problem Qualifiers (1) COPD (chronic obstructive pulmonary disease): Qualified Code: J43.9 - Pulmonary emphysema, unspecified emphysema type (2) Chest pain: Qualified Code: R07.82 - Intercostal pain (3) Obesity: Qualified Code: E66.01 - Morbid obesity, unspecified obesity type Brenda Doran Oct 26, 2016 13:52
--- NOTE | 2016-10-26 17:45 | HHI.PR ---
Subjective Remarks 46YOWM with COPD,PF,NORBERTO, homeless Has ch pain, numbness Mild sob No fever or chills Breathing better Seen by , no CHF Used CPAP last night Objective Vital Signs Vital Signs Date Time Temp Pulse Resp B/P Pulse Ox O2 Delivery O2 Flow Rate FiO2 10/26/16 15:53 60 20 159/85 94 10/26/16 12:26 98.3 67 20 162/76 96 10/26/16 10:59 18 10/26/16 08:30 96 10/26/16 08:20 98.4 63 19 158/79 93 10/26/16 00:00 98.0 67 21 168/82 98 10/25/16 23:02 96 6.00 10/25/16 23:01 96 10/25/16 20:24 98.1 60 21 161/87 97 Result Diagram: 10/26/16 1029 10/26/16 1029 Objective Remarks GENERAL: WBWN WM, mild sob SKIN: Warm and dry. HEAD: Normocephalic. EYES: No scleral icterus. No injection or drainage. NECK: Supple, trachea midline. No JVD or lymphadenopathy. CARDIOVASCULAR: Regular rate and rhythm without murmurs, gallops, or rubs. RESPIRATORY: Breath sounds equal bilaterally. No accessory muscle use. GASTROINTESTINAL: Abdomen soft, non-tender, nondistended. MUSCULOSKELETAL: No cyanosis, or edema. BACK: Nontender without obvious deformity. No CVA tenderness. A/P Assessment and Plan COPD NORBERTO Pulm Fibrosis Back pain Pt is homeless PLAN: CPAPat night, Supplement 02 2 LNC Aerosol nebs Stable from Pulm standpoint DC plans underway Orestes Acevedo MD Oct 26, 2016 17:45
[2016-10-27] MEDS: RESP: ALBUTEROL 2.5 MG/IPRATROPIUM 0.5 MG NEB (SCH) NEB ×2 (03:56→08:20)
[2016-10-27 08:00] VITALS: BP 162/84; PULSE 60; RESP 20; TEMP 96.7; O2SAT 96
[2016-10-27 08:21] LABS: AUTOMATED NEUTROPHIL # 5.3 TH/MM3 (1.8-7.7); BASOPHIL % 0.3 % (0.0-2.0); EOSINOPHIL # 0.2 TH/MM3 (0-0.4); EOSINOPHIL % 2.2 % (0.0-4.0); HEMATOCRIT 47.6 % (39.0-51.0); HEMO FLAGS DIFF FINAL; LYMPH % 24.8 % (9.0-44.0); MEAN CELL VOLUME 88.6 FL (80.0-100.0); MEAN CORPUSCULAR HEMOGLOBIN 29.3 PG (27.0-34.0); MONO % 7.6 % (0.0-8.0); NEUT % 65.1 % (16.0-70.0); PLATELET COUNT 157 TH/MM3 (150-450); RED BLOOD COUNT 5.38 MIL/MM3 (4.50-5.90); RED CELL DISTRIBUTION WIDTH 13.6 % (11.6-17.2); WHITE BLOOD COUNT 8.2 TH/MM3 (4.0-11.0)
[2016-10-27 08:23] VITALS: O2SAT 96
[2016-10-27 08:39] LABS: ALKALINE PHOSPHATASE 72 U/L (45-117); ALT (GPT) 23 U/L (12-78); ANION GAP 3 MEQ/L (5-15); AST (GOT) 15 U/L (15-37); BICARBONATE 34.6 MEQ/L (21.0-32.0); BLOOD UREA NITROGEN 19 MG/DL (7-18); CHLORIDE 102 MEQ/L (98-107); GLOMERULAR FILTRATION RATE 68 ML/MIN (>89); POTASSIUM 3.9 MEQ/L (3.5-5.1); SODIUM (NA) 140 MEQ/L (136-145); TOTAL BILIRUBIN ADULT 0.6 MG/DL (0.2-1.0)
[2016-10-27] MEDS: SODIUM CHLORIDE 0.9% FLUSH 5 ML FLUSH IVF SCH (09:07)
[2016-10-27] MEDS: ASPIRIN 325 MG TAB PO SCH (09:08)
[2016-10-27 12:00] VITALS: BP_SYST 153; BP_SYST 194; BP_DIAS 101; BP_DIAS 111; PULSE 70; RESP 20; TEMP 96.5; O2SAT 96
--- NOTE | 2016-10-27 13:55 | HHI.DS ---
Discharge Summary Admission Date Oct 23, 2016 at 03:24 Discharge Date: Oct 27, 2016 Admitting Diagnosis chest pain (1) Chest wall pain Diagnosis: Principal (2) Cocaine abuse Diagnosis: Secondary (3) NORBERTO (obstructive sleep apnea) Diagnosis: Secondary (4) Obesity Diagnosis: Secondary (5) COPD (chronic obstructive pulmonary disease) Diagnosis: Secondary Brief History Admitted 10/23 with a complaint of CP he was evaluated by cardiology and pulmonology, found to have a positive UDS for codaine and opioids. CBC/BMP: 10/27/16 0729 10/27/16 0729 Significant Findings Laboratory Tests Test 10/24/16 10/25/16 10/26/16 10/27/16 17:15 08:33 10:29 07:29 Monocytes (%) (Auto) 8.3 % (0.0-8.0) Blood Urea Nitrogen 20 MG/DL (7-18) 21 MG/DL (7-18) 19 MG/DL (7-18) 19 MG/DL (7- 18) Estimat Glomerular Filtration 69 ML/MIN (>89) 66 ML/MIN (>89) 68 ML/MIN (>89) 68 ML/MIN (>89) Rate Calcium Level 8.2 MG/DL 8.1 MG/DL 8.2 MG/DL 8.1 MG/DL (8.5-10.1) (8.5-10.1) (8.5-10.1) (8.5-10.1) Albumin 3.3 GM/DL 3.2 GM/DL (3.4-5.0) (3.4-5.0) Platelet Count 149 TH/MM3 (150-450) Neutrophils (%) (Auto) 72.1 % (16.0-70.0) Carbon Dioxide Level 32.8 MEQ/L 34.6 MEQ/L (21.0-32.0) (21.0-32.0) Random Glucose 116 MG/DL (74-106) Anion Gap 3 MEQ/L (5-15) Imaging Last Impressions Chest X-Ray 10/23/16 0117 Signed Impressions: Service Date/Time: Sunday, October 23, 2016 01:33 - CONCLUSION: Underinflated examination without an acute finding identified. Alan Shaver MD Femur X-Ray 10/23/16 0000 Signed Impressions: Service Date/Time: Monday, October 24, 2016 00:33 - CONCLUSION: No acute disease. Tanner Sanders MD PE at Discharge GENERAL: Well-nourished, morbidly obese, well-developed patient. SKIN: Warm and dry. HEAD: Normocephalic. EYES: No scleral icterus. No injection or drainage. NECK: Supple, trachea midline. No JVD or lymphadenopathy. CARDIOVASCULAR: Regular rate and rhythm without murmurs, gallops, or rubs. RESPIRATORY: Breath sounds diminished, equal bilaterally. No accessory muscle use. GASTROINTESTINAL: Abdomen obese, soft, non-tender, nondistended. EXTREMITIES: No cyanosis, or edema. NEUROLOGICAL: Awake, alert, and oriented x 3. Non-focal. Hospital Course Admitted 2/ with a complaint of CP he was evaluated by cardiology and pulmonology, found to have a positive UDS for codaine and opioids. He was treated with nebulizers and was compliant with his CPAP machine during admission. He is homeless and was unable to use the CPAP d/t a lack of facilities. Cardiology and pulmonology cleared him for discharge. His chest pain was felt to musculoskeletal in nature and no acute pulmonary process was identified. CM evaluated him and found placement for him at [facility]. He was discharged to [facility] in stable improved condition. Pt Condition on Discharge: Stable Discharge Disposition: Discharge to SNF Discharge Instructions DIET: Follow Instructions for: Heart Healthy Diet Speech Therapy-Diet Recommenda: Regular Activities you can perform: Regular-No Restrictions, Shower/Bath New Medications: Aspirin (Aspirin) 325 Mg Tab 325 MG PO DAILY Blood Clot Prevention #30 TAB Clonidine (Catapres) 0.1 Mg Tab 0.1 MG PO Q4H PRN SYS BP GREATER THAN 160 MMHG #30 TAB Ipratropium-Albuterol Neb (Duoneb) 0.5-2.5 Mg/3 Ml Neb 1 AMPULE INH Q4HR NEB PRN DYSPNEA #120 ML Continued Medications: Misc. Devices (Roller Walker) 1 Mis Mis 1 EA .ROUTE NOW #1 EA Oxygen tank (Oxygen tank) 1 Ea Tank 2 LITER JIGAR.CANULA CONTINUOUS Oxygen Concentrator Portable Gaseous 2 L/min via Nasal Cannula Continuous For 99 months HYPOXEMIA PREVENTION #1 CYLINDER ([Bipap]) KIT .XX DAILY #1 Additional Information He can be followed by the facility physician at [facility]. Brenda Doran Oct 27, 2016 13:55
[2016-10-27] MEDS ORDERED: IPRASOL INH (14:43)
[2016-10-27] MEDS ORDERED: CLON.1 PO (14:43)
[2016-10-27] MEDS ORDERED: ASPI325T PO (14:43)
--- NOTE | 2016-10-27 14:47 | HHI.DS ---
Discharge Summary Admission Date Oct 23, 2016 at 03:24 Admitting Diagnosis chest pain (1) Chest wall pain Diagnosis: Principal (2) Cocaine abuse Diagnosis: Secondary (3) NORBERTO (obstructive sleep apnea) Diagnosis: Secondary (4) Obesity Diagnosis: Secondary (5) COPD (chronic obstructive pulmonary disease) Diagnosis: Secondary Brief History Admitted 10/23 with a complaint of CP he was evaluated by cardiology and pulmonology, found to have a positive UDS for codaine and opioids. CBC/BMP: 10/27/16 0729 10/27/16 0729 Significant Findings Laboratory Tests Test 10/24/16 10/25/16 10/26/16 10/27/16 17:15 08:33 10:29 07:29 Monocytes (%) (Auto) 8.3 % (0.0-8.0) Blood Urea Nitrogen 20 MG/DL (7-18) 21 MG/DL (7-18) 19 MG/DL (7-18) 19 MG/DL (7- 18) Estimat Glomerular Filtration 69 ML/MIN (>89) 66 ML/MIN (>89) 68 ML/MIN (>89) 68 ML/MIN (>89) Rate Calcium Level 8.2 MG/DL 8.1 MG/DL 8.2 MG/DL 8.1 MG/DL (8.5-10.1) (8.5-10.1) (8.5-10.1) (8.5-10.1) Albumin 3.3 GM/DL 3.2 GM/DL (3.4-5.0) (3.4-5.0) Platelet Count 149 TH/MM3 (150-450) Neutrophils (%) (Auto) 72.1 % (16.0-70.0) Carbon Dioxide Level 32.8 MEQ/L 34.6 MEQ/L (21.0-32.0) (21.0-32.0) Random Glucose 116 MG/DL (74-106) Anion Gap 3 MEQ/L (5-15) PE at Discharge GENERAL: Well-nourished, morbidly obese, well-developed patient. SKIN: Warm and dry. HEAD: Normocephalic. EYES: No scleral icterus. No injection or drainage. NECK: Supple, trachea midline. No JVD or lymphadenopathy. CARDIOVASCULAR: Regular rate and rhythm without murmurs, gallops, or rubs. RESPIRATORY: Breath sounds diminished, equal bilaterally. No accessory muscle use. GASTROINTESTINAL: Abdomen obese, soft, non-tender, nondistended. EXTREMITIES: No cyanosis, or edema. NEUROLOGICAL: Awake, alert, and oriented x 3. Non-focal. Hospital Course Admitted with c/o chest pain, dyspnea, he was found to have a positive UDS for opioids, cocaine, and evaluated by pulmonary and cardiology. He ruled out for CA and was cleared by cardiology for d/c. He was ruled out for PNA and cleared by pulmonology for d/c. As he is homeless, arranged for a transfer to [place], where the patient can have the availability of his CPAP machine and medications. He was deemed stable for discharge to SNF and discharged. Pt Condition on Discharge: Stable Discharge Disposition: Discharge to SNF Discharge Instructions DIET: Follow Instructions for: Heart Healthy Diet Speech Therapy-Diet Recommenda: Regular Activities you can perform: Regular-No Restrictions, Shower/Bath New Medications: Aspirin (Aspirin) 325 Mg Tab 325 MG PO DAILY Blood Clot Prevention #30 TAB Clonidine (Catapres) 0.1 Mg Tab 0.1 MG PO Q4H PRN SYS BP GREATER THAN 160 MMHG #30 TAB Ipratropium-Albuterol Neb (Duoneb) 0.5-2.5 Mg/3 Ml Neb 1 AMPULE INH Q4HR NEB PRN DYSPNEA #120 ML Continued Medications: Misc. Devices (Roller Walker) 1 Mis Mis 1 EA .ROUTE NOW #1 EA Oxygen tank (Oxygen tank) 1 Ea Tank 2 LITER JIGAR.CANULA CONTINUOUS Oxygen Concentrator Portable Gaseous 2 L/min via Nasal Cannula Continuous For 99 months HYPOXEMIA PREVENTION #1 CYLINDER ([Bipap]) KIT .XX DAILY #1 Brenda Doran Oct 27, 2016 14:47
[2016-10-27] MEDS: cloNIDine HCL 0.1 MG TAB PO PRN (15:16)
[2016-10-27] MEDS: ACETAMINOPHEN/HYDROcodone 325 MG/7.5 MG TAB PO PRN (15:17)
[2017-01-24] MEDS ORDERED: SYMB160A INH (11:22)
[2017-01-24] MEDS ORDERED: XANA1TAB2 PO (11:22)
[2017-01-24] MEDS ORDERED: NORC5TAB PO (11:22)
[2017-01-24] MEDS ORDERED: ALBUAER3 INH (11:22)
[2017-01-24] MEDS ORDERED: VALP250C PO (11:27)
[2017-01-24] MEDS ORDERED: CHLO25TA2 PO (11:43)
[2017-01-24] MEDS ORDERED: LISI40TA PO (11:43)
[2017-02-24] MEDS ORDERED: AZIT500T2 PO (15:02)
[2017-02-24] MEDS ORDERED: LISI40TA PO (15:02)
[2017-02-24] MEDS ORDERED: XANA1TAB2 PO (15:02)
[2017-02-24] MEDS ORDERED: NORC5TAB PO (15:02)
[2017-02-24] MEDS ORDERED: ALBUAER3 INH (15:02)
[2017-02-24] MEDS ORDERED: VALP250C PO (15:02)
[2017-02-24] MEDS ORDERED: CHLO25TA2 PO (15:02)
[2017-02-24] MEDS ORDERED: CLON.1 PO (15:02)
[2017-02-24] MEDS ORDERED: ASPI325T PO (15:02)
[2017-02-24] MEDS ORDERED: SYMB160A INH (15:02)
[2017-02-24] MEDS ORDERED: IPRASOL INH (15:02)
[2017-02-24] MEDS ORDERED: CHLOR50 PO (16:17)
== END 2016-10-27 16:42 | disposition home or self-care (01) ==
LOC: NEPC 01:06 → NEDA 03:24 → NEPHCDU 04:51
PROVIDERS: ADMIT Family Medicine; ATTEND Family Medicine
DX: R07.89 Other chest pain (principal); F14.10 Cocaine abuse, uncomplicated; G47.33 Obstructive sleep apnea (adult) (pediatric); E66.01 Morbid (severe) obesity due to excess calories; E11.9 Type 2 diabetes mellitus without complications; M54.9 Dorsalgia, unspecified; G89.29 Other chronic pain; I10 Essential (primary) hypertension; I25.2 Old myocardial infarction; J44.9 Chronic obstructive pulmonary disease, unspecified; J84.10 Pulmonary fibrosis, unspecified; K21.9 Gastro-esophageal reflux disease without esophagitis; E78.00 Pure hypercholesterolemia, unspecified; Z79.899 Other long term (current) drug therapy; Z86.14 Personal history of Methicillin resistant Staphylococcus aureus infection; Z95.0 Presence of cardiac pacemaker; Z59.0 Homelessness
CPT/HCPCS: 71010; 73552; 80053; 80307; 81001; 82550; 82552; 83735; 83880; 84484; 85025; 85610; 85730; 87086; 87641; 93005; 94002; 94003; 94620; 94640; 94664; 97163; 97167; 99285; G0378; G8987; G8988; J2930; J7040